=== PATIENT | female | born 1985 | race Caucasian/White ===

== ENCOUNTER → 2017-06-17 | Outpatient (CLI) | payer BC ==
[2013-04-22 17:49] VITALS: BP 141/87
[2017-06-17 14:22] LABS: T4 (THYROXINE) 9.7 ug/dL (4.7-13.3); TSH (3RD GENERATION) 1.583 uIU/mL (0.358-3.74)
== END ==
LOC: LAB 12:16
PROVIDERS: ATTEND Internal Medicine Endocrinology, Diabetes & Metabolism
DX: E03.4 Atrophy of thyroid (acquired) (principal)
CPT/HCPCS: 36415; 84436; 84443; 84481

== ENCOUNTER 2018-04-20 14:34 | Inpatient (IN) ==
[2018-04-20 14:43] VITALS: BMI 29.7
[2018-04-20 15:28] LABS: BASOPHILS # (AUTO) 0.1 X10^3/uL (0.0-0.1); BASOPHILS % (AUTO) 0.4 % (0.2-1.0); EOSINOPHILS % (AUTO) 0.1 % (0.9-2.9); HEMATOCRIT 38.2 % (36.0-47.0); HEMOGLOBIN 12.9 g/dL (12.0-16.0); LYMPHOCYTES # (AUTO) 1.9 X10^3/uL (1.3-2.9); LYMPHOCYTES % (AUTO) 13.3 % (21.0-51.0); MEAN CORPUSCULAR HEMOGLOBIN 29.6 pg (27.0-34.0); MEAN CORPUSCULAR HGB CONC 33.9 g/dL (33.0-35.0); MEAN CORPUSCULAR VOLUME 87.4 fL (80.0-100.0); MEAN PLATELET VOLUME 7.6 fL (7.4-11.0); MONOCYTES # (AUTO) 1.4 x10^3/uL (0.3-0.8); MONOCYTES % (AUTO) 9.7 % (0.0-13.0); NEUTROPHILS # (AUTO) 10.8 x10^3/uL (2.2-4.8); NEUTROPHILS % (AUTO) 76.5 % (42.0-75.0); PLATELET COUNT 431 X10^3/uL (150.0-450.0); RED BLOOD COUNT 4.37 X10^6/uL (3.5-5.4); RED CELL DISTRIBUTION WIDTH 12.2 % (11.6-16.5); WHITE BLOOD COUNT 14.1 X10^3/uL (3.6-10.0)
--- NOTE | 2018-04-20 15:29 | DR.SOBA ---
HPI Time Seen Time Seen by Provider: 04/20/18 15:16 Primary Care Physician Primary Care Physician: SINA PARRA HPI Comment HPI Comment: INCREASING SOB AND CHEST PAIN IN RIGHT LOWER CHEST AREA. 6 WEEKS AGO TREATED FOR UTI AND RIGHT SIDED PLEURAL EFFUSION. THIS NEVER RESOLVED. PROGRESSIVE RIGHT LOWER CHEST PAIN AND SOB WITN NON PRODUCTIVE COUGH CONTINUED. WORSE TODAY. Complaints Chief Complaint Doctors Comments: SOB AND CHEST PAIN. Chief Complaint:: PT. C/O RIGHT UPPER QUADRANT PAIN AND SHORTNESS OF BREATH. PT. STATES SHE BECAME SICK ON 03/11/18 AND WAS DIAGNOSED WITH A PLEURAL EFFUSION AND A UTI. SYMTPOMS HAVE PERSISTED AND SHORTNESS OF BREATH WORSENED TODAY. PT. ALSO C/O DRY COUGH & NAUSEA. 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 Past Surgical History Comment: TUBAL LIGATION Family History History of Family Medical Conditions: No Social History Does patient currently use any type of tobacco product: No Have you used tobacco products in the last 12 months: No Type of Tobacco Use: None Does any household member use tobacco: No Alcohol Use: Rarely Do you use any recreational Drugs:: No Lives With: Spouse Lives Where: Home infectious screening In the last 2 months have you had wt loss of >10#?: NO Have you had fever, night sweats or hemotysis?: No Have you traveled outside the country in the last 6 months?: No Isolation: Standard ROS Review of Systems Constitutional: Weakness and Fatigue Eyes: No Symptoms Reported ENTM: Nose Congestion Respiratoy: Moist Cough and Short of Breath Cardiovascular: Chest Pain Gastrointestinal/Abdominal: No Symptoms Reported Genitourinary: No Symptoms Reported Neurological: No Symptoms Reported Musculoskeletal: No Symptoms Reported Integumentary: No Symptoms Reported Hematologic/Lymphatic: No Symptoms Reported Endocrine: No Symptoms Reported Psychiatric: No Symptoms Reported All Other Systems: Reviewed and Negative PE Vital Signs Vitals: Temperature 97.5 F Pulse Rate [Apical] 111 Pulse Rate 88 Respiratory Rate 22 Blood Pressure [Right Arm] 96/53 Blood Pressure 123/71 O2 Sat by Pulse Oximetry 94 General Limitations: No Limitations General Appearance: Alert and In Distress Head Head Exam: Normal Inspection Eyes Eye exam: Normal Appearance ENT ENT Exam: Normal External Ear Exam Neck Neck Exam: Trachea Midline Chest Chest Inspection: Symmetric Chest Wall Rise Respiratory Respiratory Exam: Respiratory Distress Respiratory Exam: Bilateral: Wheezing and Bilateral: Rhonchi, Upper: Rhonchi and Lower: Wheezing and Lower: Rhonchi Cardiovascular Cardiovascular Exam: Regular Rate and Normal Rhythm Abdominal Exam Abdominal Exam: Normal Bowel Sounds and Soft; negative Tenderness Extremities Extremities Exam: Normal Inspection Back Back Exam: Normal Inspection Neurologic Neurological Exam: Alert and Oriented X3; negative Motor Sensory Deficit Psychiatric Psychiatric Exam: Normal Affect and Normal Mood Skin Skin Exam: Intact MDM Additional Information Obtained Additional Information Obtained From: Family Differential Diagnosis Differential Diagnosis: Bronchitis, CHF, Mycardial Infarction, Pneumonia, Pneumothorax, Pulmonary embolism, Respiratory Insufficiency and URI COURSE Treatment Treatment: SEE ORDERS. Education/Counseling Education/Counseling: Patient and Family Educated On: Diagnosis ROR Labs Reviewed Laboratory Results Reviewed?: Yes (REPORT NOTED) Result Diagrams: 04/21/18 03:03 04/21/18 03:03 Laboratory: 04/20/18 20:11 Urine,Clean Catch Urine Culture - Preliminary WBC 12.8 X10^3/uL (3.6-10.0) H 04/21/18 03:03 RBC 4.06 X10^6/uL (3.5-5.4) 04/21/18 03:03 Hgb 11.9 g/dL (12.0-16.0) L 04/21/18 03:03 Hct 35.5 % (36.0-47.0) L 04/21/18 03:03 MCV 87.5 fL (80.0-100.0) 04/21/18 03:03 MCH 29.4 pg (27.0-34.0) 04/21/18 03:03 MCHC 33.6 g/dL (33.0-35.0) 04/21/18 03:03 RDW 12.3 % (11.6-16.5) 04/21/18 03:03 Plt Count 334 X10^3/uL (150.0-450.0) 04/21/18 03:03 MPV 7.2 fL (7.4-11.0) L 04/21/18 03:03 Neut % (Auto) 76.3 % (42.0-75.0) H 04/21/18 03:03 Lymph % (Auto) 13.0 % (21.0-51.0) L 04/21/18 03:03 [place] % (Auto) 10.0 % (0.0-13.0) 04/21/18 03:03 Eos % (Auto) 0.2 % (0.9-2.9) L 04/21/18 03:03 Baso % (Auto) 0.5 % (0.2-1.0) 04/21/18 03:03 Neut # (Auto) 9.8 x10^3/uL (2.2-4.8) H 04/21/18 03:03 Lymph # (Auto) 1.7 X10^3/uL (1.3-2.9) 04/21/18 03:03 [place] # (Auto) 1.3 x10^3/uL (0.3-0.8) H 04/21/18 03:03 Eos # (Auto) 0.0 x10^3/uL (0.0-0.2) 04/21/18 03:03 Baso # (Auto) 0.1 X10^3/uL (0.0-0.1) 04/21/18 03:03 Absolute Nucleated RBC 0.0 /100WBC 04/21/18 03:03 INR Target Range - 04/20/18 14:50 INR 1.12 (0.8-1.3) 04/20/18 14:50 APTT 37.8 SECONDS (22.9-36.5) H 04/20/18 14:50 PTT Comment - 04/20/18 14:50 D-Dimer 1720 ng/mL (0-400) H* 04/20/18 14:50 Sample Site Rr 04/21/18 15:22 ABG pH 7.480 (7.35-7.45) H 04/21/18 15:22 ABG pCO2 34.0 mmHg (35.0-45.0) L 04/21/18 15:22 ABG pO2 71.0 mmHg (80.0-100.0) L 04/21/18 15:22 ABG HCO3 25.3 mmol/L (22-26) 04/21/18 15:22 ABG O2 Saturation 95.0 % (90-100) 04/21/18 15:22 ABG Base Excess 2.1 mmol/L (-2.0-2.0) H 04/21/18 15:22 Tomasz Test Pos 04/21/18 15:22 A-a Gradient 36.0 mmHg 04/21/18 15:22 FiO2 21.0 04/21/18 15:22 Blood Gas Comments Pt bernard well. cdn 04/21/18 15:22 Sodium 137 mmol/L (136-145) 04/21/18 03:03 Corrected Sodium TNP 04/21/18 03:03 Potassium 3.7 mmol/L (3.5-5.1) 04/21/18 03:03 Chloride 99 mmol/L (98-107) 04/21/18 03:03 Carbon Dioxide 25.1 mmol/L (21-32) 04/21/18 03:03 BUN 8 mg/dL (7-18) 04/21/18 03:03 Creatinine 0.80 mg/dL (0.55-1.02) 04/21/18 03:03 Est GFR (MDRD) Af Amer > 60 (>60) 04/21/18 03:03 Est GFR (MDRD) Non-Af > 60 (>60) 04/21/18 03:03 Glucose 108 mg/dL (65-99) H 04/21/18 03:03 Lactic Acid 0.6 mmol/L (0.4-2.0) 04/20/18 16:57 Calcium 8.6 mg/dL (8.5-10.1) 04/21/18 03:03 Corrected Calcium 9.6 mg/dL (8.5-10.1) 04/21/18 03:03 Total Bilirubin 0.70 mg/dL (0.2-1.0) 04/21/18 03:03 AST 9 Units/L (15-37) L 04/21/18 03:03 ALT 13 Units/L (12-78) 04/21/18 03:03 Alkaline Phosphatase 66 Units/L (46-116) 04/21/18 03:03 Creatine Kinase 22 Units/L (26-192) L 04/21/18 03:03 CK-MB (CK-2) < 1.0 ng/mL (0-4.0) 04/21/18 03:03 CK/CKMB % Calc 4.6 % (<4) 04/21/18 03:03 Troponin I < 0.02 ng/mL (0-1.5) 04/21/18 03:03 B-Natriuretic Peptide < 5.0 pg/mL (0-79) 04/20/18 14:50 Total Protein 7.1 g/dL (6.4-8.2) 04/21/18 03:03 Albumin 2.8 g/dL (3.4-5.0) L 04/21/18 03:03 Globulin 4.3 g/dL (2.5-4.5) 04/21/18 03:03 Albumin/Globulin Ratio 0.7 Ratio (1.1-2.1) L 04/21/18 03:03 Amylase 34 Units/L (25-115) 04/20/18 14:50 Lipase 81 Units/L (73-393) 04/20/18 14:50 HCG, Qual Negative <10 mIU/mL 04/20/18 14:50 Specimen Type Clean catch urine 04/20/18 20:11 Urine Color [place] (YELLOW) 04/20/18 20:11 Urine Appearance Slightly hazy (CLEAR) 04/20/18 20:11 Urine pH 5.0 (5.0 - 8.0) 04/20/18 20:11 Ur Specific [place] 1.005 (1.000-1.030) 04/20/18 20:11 Urine Protein 2+ (NEGATIVE) 04/20/18 20:11 Urine Glucose (UA) Negative (NEGATIVE) 04/20/18 20:11 Urine Ketones 1+ (NEGATIVE) 04/20/18 20:11 Urine Occult Blood 2+ (NEGATIVE) 04/20/18 20:11 Urine Nitrite Negative (NEGATIVE) 04/20/18 20:11 Urine Bilirubin Negative (NEGATIVE) 04/20/18 20:11 Urine Urobilinogen Normal (NORMAL) 04/20/18 20:11 Ur Leukocyte Esterase 3+ (NEGATIVE) 04/20/18 20:11 Urine RBC 0-2 /HPF (NONE SEEN) 04/20/18 20:11 Urine WBC 10-20 /HPF (NONE SEEN) 04/20/18 20:11 Ur Squamous Epith Cells Many /HPF (NEGATIVE) 04/20/18 20:11 Amorphous Sediment 1+ /HPF (NEGATIVE) 04/20/18 20:11 Urine Bacteria Trace /HPF (NEGATIVE) 04/20/18 20:11 Ur Culture Indicated? Yes/culture set up 04/20/18 20:11 XRAY XRAY Interpreted by: Radiologist (REPORT NOTED.) XRAY Findings: DISCUSS REPORT WITH PATIENT/DETAIL ON THE REPORT THAT IS ON RECORD. EKG [place]: Normal Rhythm: NSR Diagnosis Discharge Problem: Right lower lobe pneumonia, Pleural effusion Instructions Instructions: Pleural Effusion Community-Acquired Pneumonia, Adult, [id number] Forms: Patient Portal
[2018-04-20 15:45] LABS: ALANINE AMINOTRANSFERASE 19 Units/L (12-78); ALBUMIN 3.5 g/dL (3.4-5.0); ALKALINE PHOSPHATASE 77 Units/L (46-116); AMYLASE 34 Units/L (25-115); ASPARTATE AMINO TRANSFERASE 13 Units/L (15-37); BLOOD UREA NITROGEN 8 mg/dL (7-18); CALCIUM 9.1 mg/dL (8.5-10.1); CARBON DIOXIDE 26.7 mmol/L (21-32); CHLORIDE 99 mmol/L (98-107); COR NA(FOR HYPERGLY) 136 mmol/L (136-145); CREATININE 0.91 mg/dL (0.55-1.02); LIPASE 81 Units/L (73-393); SODIUM 136 mmol/L (136-145); TOTAL PROTEIN 8.1 g/dL (6.4-8.2); eGFR NON BLACK RACES > 60 (>60)
[2018-04-20 15:49] LABS: SERUM PREGNANCY TEST, QUAL NEGATIVE <10 mIU/mL
[2018-04-20 15:58] LABS: B-TYPE NATRIURETIC PEPTIDE < 5.0 pg/mL (0-79)
[2018-04-20 16:00] LABS: CREATINE KINASE 39 Units/L (26-192); CREATINE KINASE MB < 1.0 ng/mL (0-4.0); TROPONIN I < 0.02 ng/mL (0-1.5)
[2018-04-20 16:08] LABS: CKMB % 2.6 % (<4)
--- NOTE | 2018-04-20 16:41 | RAD ---
HISTORY: Right upper quadrant pain and shortness of breath Study: Two-view chest Comparison: None available Findings: The trachea is midline. The cardiac silhouette is unremarkable. The lungs demonstrate a moderate right-sided pleural effusion with associated infiltrate with a small loculated component.. The bony thorax is unremarkable. IMPRESSION: 1. Right-sided effusion with associated infiltrate as above. Reported By:
--- NOTE | 2018-04-20 16:45 | CT ---
HISTORY: Right upper quadrant pain and shortness of breath history of pleural effusion Study: CT chest with contrast Comparison: None Technique: Multiple axial images of the chest were obtained from the thoracic inlet to the upper abdomen after the administration of IV contrast. A PE protocol utilizing coronal and sagittal MIPS were obtained reviewed. Findings: The mediastinum does not demonstrate significant pathological lymphadenopathy. There is no pericardial effusion observed. The thoracic aorta is normal in its contour without evidence for aneurysmal dilatation. The central pulmonary arterial system does not demonstrate central filling defects to suggest pulmonary emboli. Evaluation of the lung parenchyma demonstrates a right-sided layering effusion with no loculated components. There is a small amount of fluid extending into the fissures. There is also associated focal consolidation in the right lower lobe with air bronchograms suggesting pneumonia although clinical correlation is requested.. No pulmonary nodule or mass can be identified. The bony thorax is unremarkable in its appearance. The visualized portions of the upper abdomen are grossly unremarkable. IMPRESSION: 1. Right-sided layering effusion with associated consolidation as above. There is no evidence for pulmonary embolus. Reported By:
[2018-04-20] MEDS ORDERED: ROCEPHIN VIAL 1 GRAM IVP ONE (16:54)
[2018-04-20] MEDS ORDERED: ROCEPHIN VIAL 1 GRAM ONE (17:06)
[2018-04-20] MEDS ORDERED: SALINE 3% 15 ML NEB TX ONE (17:31)
[2018-04-20] MEDS ORDERED: DUONEB 0.5 MG/3 MG ONE (17:31)
[2018-04-20] MEDS ORDERED: NS 1/2 1000 ML IV 1,000 ML IV ONE (18:43)
[2018-04-20] MEDS: TYLENOL 325 MG TAB PO PRN (19:01)
[2018-04-20] MEDS: LEVAQUIN PREMIX IV 500 MG 500 MG/100 ML BAG IV SCH (19:01)
[2018-04-20] MEDS: NS 1/2 1000 ML IV 1,000 ML IV SCH (19:01)
[2018-04-20 20:24] LABS: BILIRUBIN,URINE NEGATIVE (NEGATIVE); BLOOD/HEMOGLOBIN,URINE 2+ (NEGATIVE); GLUCOSE, URINE NEGATIVE (NEGATIVE); KETONES,URINE 1+ (NEGATIVE); LEUKOCYTE ESTERASE ,URINE 3+ (NEGATIVE); NITRITES,URINE NEGATIVE (NEGATIVE); PROTEIN,URINE 2+ (NEGATIVE); UROBILINOGEN,URINE NORMAL (NORMAL)
[2018-04-20 20:30] LABS: APPEARANCE,URINE SLIGHTLY HAZY (CLEAR); COLOR,URINE AMBER (YELLOW)
[2018-04-20] MEDS: ROBITUSSIN DM PO SCH (20:35)
[2018-04-20 20:38] LABS: RBC,URINE 0-2 /HPF (NONE SEEN)
[2018-04-20 20:39] LABS: AMORPHOUS SEDIMENT,UR 1+ /HPF (NEGATIVE); BACTERIA,URINE TRACE /HPF (NEGATIVE); SQUAMOUS EPITHELIAL CELL,UR MANY /HPF (NEGATIVE)
[2018-04-20] MEDS: ZOSYN VIAL 4.5 GRAMS 4.5 G in NS 100 ML IV + SPIKE MINIBAG* 100 ML IV SCH (21:30)
[2018-04-20] MEDS ORDERED: ZOSYN VIAL 4.5 GRAMS IV SCH (22:00)
[2018-04-20 22:12] LABS: CKMB % 3.3 % (<4); CREATINE KINASE 30 Units/L (26-192); CREATINE KINASE MB < 1.0 ng/mL (0-4.0); TROPONIN I < 0.02 ng/mL (0-1.5)
[2018-04-21] MEDS: XOPENEX 1.25 MG/3 ML NEBULE NEB SCH ×5 (00:52→20:37)
[2018-04-21 03:19] LABS: BASOPHILS # (AUTO) 0.1 X10^3/uL (0.0-0.1); BASOPHILS % (AUTO) 0.5 % (0.2-1.0); EOSINOPHILS % (AUTO) 0.2 % (0.9-2.9); HEMATOCRIT 35.5 % (36.0-47.0); HEMOGLOBIN 11.9 g/dL (12.0-16.0); LYMPHOCYTES # (AUTO) 1.7 X10^3/uL (1.3-2.9); MEAN CORPUSCULAR HEMOGLOBIN 29.4 pg (27.0-34.0); MEAN CORPUSCULAR HGB CONC 33.6 g/dL (33.0-35.0); MEAN CORPUSCULAR VOLUME 87.5 fL (80.0-100.0); MEAN PLATELET VOLUME 7.2 fL (7.4-11.0); MONOCYTES # (AUTO) 1.3 x10^3/uL (0.3-0.8); NEUTROPHILS # (AUTO) 9.8 x10^3/uL (2.2-4.8); NEUTROPHILS % (AUTO) 76.3 % (42.0-75.0); PLATELET COUNT 334 X10^3/uL (150.0-450.0); RED BLOOD COUNT 4.06 X10^6/uL (3.5-5.4); RED CELL DISTRIBUTION WIDTH 12.3 % (11.6-16.5); WHITE BLOOD COUNT 12.8 X10^3/uL (3.6-10.0)
[2018-04-21 03:40] LABS: ALANINE AMINOTRANSFERASE 13 Units/L (12-78); ALBUMIN 2.8 g/dL (3.4-5.0); ALKALINE PHOSPHATASE 66 Units/L (46-116); ASPARTATE AMINO TRANSFERASE 9 Units/L (15-37); BLOOD UREA NITROGEN 8 mg/dL (7-18); CALCIUM 8.6 mg/dL (8.5-10.1); CARBON DIOXIDE 25.1 mmol/L (21-32); CKMB % 4.6 % (<4); COR CA(FOR HYPOALB) 9.6 mg/dL (8.5-10.1); CREATINE KINASE 22 Units/L (26-192); CREATINE KINASE MB < 1.0 ng/mL (0-4.0); SODIUM 137 mmol/L (136-145); TOTAL PROTEIN 7.1 g/dL (6.4-8.2); TROPONIN I < 0.02 ng/mL (0-1.5); eGFR NON BLACK RACES > 60 (>60)
[2018-04-21] MEDS: ZOSYN VIAL 4.5 GRAMS 4.5 G in NS 100 ML IV + SPIKE MINIBAG* 100 ML IV SCH ×3 (05:08→21:56)
[2018-04-21] MEDS: TYLENOL 325 MG TAB PO PRN ×2 (05:18→15:53)
[2018-04-21 06:35] LABS: CHLORIDE 99 mmol/L (98-107)
--- NOTE | 2018-04-21 06:51 | RAD ---
History: Pneumonia Study: AP chest Comparison: Yesterday Findings: There is an increasingly large right pleural effusion. The left lung is clear and the heart size is normal. Impression: Increasingly large right pleural effusion with probable right lower lobe atelectasis or consolidation Reported By:
[2018-04-21] MEDS: ROBITUSSIN DM PO SCH ×4 (08:40→20:30)
[2018-04-21] MEDS: MUCOMYST 20% 200 MG/ML NEB SCH ×3 (09:24→20:38)
[2018-04-21] MEDS: SOLU-Medrol 40 MG VIAL IVP SCH ×3 (10:08→21:05)
[2018-04-21 15:27] LABS: ABG ALLEN TEST POS; ABG BASE EXCESS 2.1 mmol/L (-2.0-2.0); ABG HCO3 25.3 mmol/L (22-26)
--- NOTE | 2018-04-21 15:52 | US ---
HISTORY: Abdominal pain. Pneumonia and pleural effusion. Study: Right upper quadrant abdominal ultrasound Comparison: Most recent chest radiograph. Technique: Multiple godwin scale and color flow Doppler images of the right upper quadrant were obtained. Findings: The liver is normal in echotexture and size. No focal intraparenchymal mass or intrahepatic biliary ductal dilatation can be observed. The gallbladder fails to demonstrate evidence for cholelithiasis or layering sludge. The common bile duct is unremarkable measuring 10 mm. No pericholecystic fluid or gallbladder wall thickening can be observed. The CBD measures within normal limits. There is appropriate flow seen within the portal vein, hepatic artery, and visualized hepatic veins on this exam. The right kidney appears normal in size without focal parenchymal mass or nephrolithiasis. The right kidney measurers 9 x 5 x 5 cm. No hydronephrosis or perirenal fluid can be observed. The pancreatic head and body are unremarkable. The pancreatic tail is largely obscured by overlying bowel gas. IMPRESSION: No acute abdominal abnormalities are observed. Right-sided pleural effusion again appreciated, however. Reported By:
[2018-04-21] MEDS ORDERED: NS 1/2 1000 ML IV 1,000 ML IV ONE (17:46)
[2018-04-21] MEDS: NS 1/2 1000 ML IV 1,000 ML IV SCH (20:04)
[2018-04-21] MEDS: LEVAQUIN PREMIX IV 500 MG 500 MG/100 ML BAG IV SCH (20:30)
[2018-04-21] MEDS ORDERED: MAALOX or MYLANTA PO PRN (21:50)
[2018-04-21] MEDS ORDERED: MAALOX or MYLANTA ONE (21:52)
[2018-04-21] MEDS: ZOFRAN INJ 4 MG VIAL IVP PRN (22:15)
[2018-04-22] MEDS: NS 1/2 1000 ML IV 1,000 ML IV SCH ×2 (03:10→20:16)
[2018-04-22] MEDS: SOLU-Medrol 40 MG VIAL IVP SCH ×2 (05:08→13:40)
[2018-04-22] MEDS: ZOSYN VIAL 4.5 GRAMS 4.5 G in NS 100 ML IV + SPIKE MINIBAG* 100 ML IV SCH ×3 (05:09→21:50)
--- NOTE | 2018-04-22 05:53 | RAD ---
History: Follow-up of pleural effusion Study: Portable AP chest Comparison: Yesterday Findings: There is a moderately large right pleural effusion that overall appears slightly smaller than on yesterday's exam. The left lung is clear. The right upper lobe is clear. The heart size is normal. Impression: Moderately large right pleural effusion decreasing in size Reported By:
[2018-04-22 06:11] LABS: BASOPHILS % (AUTO) 0.1 % (0.2-1.0); HEMATOCRIT 33.9 % (36.0-47.0); HEMOGLOBIN 11.6 g/dL (12.0-16.0); LYMPHOCYTES # (AUTO) 0.8 X10^3/uL (1.3-2.9); LYMPHOCYTES % (AUTO) 4.4 % (21.0-51.0); MEAN CORPUSCULAR HEMOGLOBIN 29.5 pg (27.0-34.0); MEAN CORPUSCULAR HGB CONC 34.3 g/dL (33.0-35.0); MEAN CORPUSCULAR VOLUME 86.1 fL (80.0-100.0); MEAN PLATELET VOLUME 7.6 fL (7.4-11.0); MONOCYTES # (AUTO) 0.5 x10^3/uL (0.3-0.8); MONOCYTES % (AUTO) 2.8 % (0.0-13.0); NEUTROPHILS # (AUTO) 16.6 x10^3/uL (2.2-4.8); NEUTROPHILS % (AUTO) 92.7 % (42.0-75.0); PLATELET COUNT 404 X10^3/uL (150.0-450.0); RED BLOOD COUNT 3.93 X10^6/uL (3.5-5.4); RED CELL DISTRIBUTION WIDTH 12.2 % (11.6-16.5); WHITE BLOOD COUNT 17.9 X10^3/uL (3.6-10.0)
[2018-04-22 07:42] LABS: ALANINE AMINOTRANSFERASE 15 Units/L (12-78); ALBUMIN 2.9 g/dL (3.4-5.0); ALKALINE PHOSPHATASE 72 Units/L (46-116); ASPARTATE AMINO TRANSFERASE 9 Units/L (15-37); BLOOD UREA NITROGEN 6 mg/dL (7-18); CALCIUM 9.4 mg/dL (8.5-10.1); CARBON DIOXIDE 25.7 mmol/L (21-32); CHLORIDE 102 mmol/L (98-107); COR CA(FOR HYPOALB) 10.3 mg/dL (8.5-10.1); COR NA(FOR HYPERGLY) 139 mmol/L (136-145); CREATININE 0.75 mg/dL (0.55-1.02); SODIUM 138 mmol/L (136-145); TOTAL PROTEIN 7.8 g/dL (6.4-8.2); eGFR NON BLACK RACES > 60 (>60)
[2018-04-22 08:02] LABS: PLATELET MORPHOLOGY COMMENT NORMAL (NORMAL)
[2018-04-22] MEDS: ROBITUSSIN DM PO SCH ×4 (08:19→20:16)
[2018-04-22] MEDS: MUCOMYST 20% 200 MG/ML NEB SCH ×3 (09:00→18:05)
[2018-04-22] MEDS: XOPENEX 1.25 MG/3 ML NEBULE NEB SCH ×3 (09:00→18:05)
[2018-04-22] MEDS ORDERED: COLACE CAP 100 MG PO PRN (14:12)
[2018-04-22] MEDS ORDERED: ULTRAM PO PRN (14:12)
--- NOTE | 2018-04-22 16:03 | DR.H&P ---
H&P - History & Physical for Day of: H&P Date: 04/20/18 - Chief Complaint Chief Complaint: SOB, RIGHT SIDE CHEST PAIN - History of Present Illness History of Present Illness: 32 WF ER ADMISSION AFTER PRESENTING WITH CO INCREASING SOB AND CHEST PAIN IN RIGHT LOWER CHEST AREA. 6 WEEKS AGO TREATED FOR UTI AND RIGHT SIDED PLEURAL EFFUSION. THIS NEVER RESOLVED. PROGRESSIVE RIGHT LOWER CHEST PAIN AND SOB WITN NON PRODUCTIVE COUGH CONTINUED. WORSE TODAY. CTA CHEST IN ER REVEALED R PLEURAL EFFUSION DUE TO PNEUMONIA. PT ADMITTED FOR PNEUMONIA PROTOCOL - Past Medical History Past Medical History: GERD - Past Surgical History Surgical History: SLITTER OPERATOR Surgery - Family History Family Medical History: Diabetes Mellitus, Coronary Artery Disease, Heart Failure, Hypertension - Social History Does patient currently use any type of tobacco product: No Have you used tobacco products in the last 12 months: No Type of Tobacco Use: None Does any household member use tobacco: No Alcohol Use: Rarely Drug Use: None - Medications Home Medications: almond Allergy (Verified 04/20/18 15:21) codeine Allergy (Verified 04/20/18 15:21) diphenhydramine [From Benadryl] Allergy (Verified 04/20/18 15:21) Sulfa (Sulfonamide Antibiotics) [SULFA] Allergy (Verified 04/20/18 15:21) CONTINUE taking the following medications NK 04/21/18 [History] - Review of Systems Constitutional: Malaise Eyes: No Symptoms Reported ENT: No Symptoms Reported Respiratory: Shortness of Breath, SOB with Excertion, Pleuritic Pain Cardiovascular: No Symptoms Reported Gastrointestinal: Nausea Musculoskeletal: No Symptoms Reported Skin: No Symptoms Reported Neurological: No Symptoms Reported - Physical Exam Vital Signs: Temperature 97.8 F Pulse Rate [Apical] 119 Pulse Rate 98 Respiratory Rate 20 Blood Pressure [Right Arm] 122/64 Blood Pressure 123/71 O2 Sat by Pulse Oximetry 99 Oriented: Normal Eyes: Normal Ear: Normal Nose: Normal Throat: Normal Respiratory: RML Diminished, RLL Diminished Cardiovascular: Normal : Normal Auscultation: Bowel Sounds: Normal Palpation: Normal Tenderness: Normal Skin: Normal Musculoskeletal: Right, Tender (RIGHT LATERAL CHEST) Psychiatric: Normal Mood Description: Calm Affect: Anxious Speech Pattern: Clear, Appropriate - Assessment/Plan (1) Right lower lobe pneumonia Status: Acute Plan: ADMIT, PNEUMONIA PROTOCOL. BLOOD AND SPUTUM CULTURE. IV ATBX, RESP THERAPY, SUPPLEMENTAL O2. AM CHEST XRAY. GENTLE IV HYDRATION (2) SOB (shortness of breath) Status: Acute (3) Pleural effusion Status: Acute - Allergies Allergies/Adverse Reactions: Allergies Allergy/AdvReac Type Severity Reaction Status Date / Time almond Allergy Verified 04/20/18 15:21 codeine Allergy Verified 04/20/18 15:21 diphenhydramine Allergy Verified 04/20/18 15:21 [From Benadryl] Sulfa (Sulfonamide Allergy Verified 04/20/18 15:21 Antibiotics) [SULFA]
--- NOTE | 2018-04-22 16:09 | PCM.PROG ---
Progress Note - Progress Note for Day of Date of Exam: 04/21/18 - Subjective Subjective: 32 WF ER ADMISSION ON 04/20 WITH RIGHT PNEUMONIA AND PLEURAL EFFUSION. PT CONTINUES TO CO RIGHT SIDE PAIN AND RUQ TENDERNESS. PT CO NAUSEA AND FOOD INTOLERANCE AND HAD GB US SCHEDULED WITH PCP, WE WILL TRY TO OBTAIN GB US TODAY. PT CONTINUES WITH DIFFUSE RIGHT LUNG DIMINISHED BS. PT STARTED ON MUCOMYST, SOLU MEDROL IV X 3 DOSE AND CONTINUE IV ATBX. PT REPORTS HX OF MURMUR, MILD LE EDEMA - Past Medical Family Social History Past Med/Fam/Surg Hx: No changes since H&P Allergies: Allergies almond Allergy (Verified 04/20/18 15:21) codeine Allergy (Verified 04/20/18 15:21) diphenhydramine [From Benadryl] Allergy (Verified 04/20/18 15:21) Sulfa (Sulfonamide Antibiotics) [SULFA] Allergy (Verified 04/20/18 15:21) - Review of Systems ROS: No change since H&P - Vital Signs and I&O's Vital Signs: Temperature 97.8 F Pulse Rate [Apical] 119 Pulse Rate 98 Respiratory Rate 20 Blood Pressure [Right Arm] 122/64 Blood Pressure 123/71 O2 Sat by Pulse Oximetry 99 Intake and Output: Intake & Output 04/20/18 04/21/18 04/22/18 04/23/18 11:59 11:59 11:59 11:59 Intake Total 1860 / 1860 2602 / 2602 Output Total 480 / 480 500 / 500 Balance 1380 / 1380 2102 / 2102 - Physical Exam Oriented: Normal Eyes: Normal Ear: Normal Nose: Normal Throat: Normal Cardiovascular: Normal, Edema (TRACE BILATERAL LE) : Normal Auscultation: Bowel Sounds: Normal Tenderness: Normal Skin: Normal Musculoskeletal: Right, Tender (RIGHT LATERAL CHEST) Psychiatric: Normal Mood Description: Calm Affect: Anxious Speech Pattern: Clear, Appropriate - Laboratory and Diagnostics Result Diagrams: 04/22/18 05:20 04/22/18 05:20 Labs: 04/20/18 17:05 Blood Blood Culture - Preliminary 04/20/18 16:57 Blood Blood Culture - Preliminary 04/20/18 20:11 Urine,Clean Catch Urine Culture - Final Laboratory WBC 17.9 X10^3/uL (3.6-10.0) H 04/22/18 05:20 RBC 3.93 X10^6/uL (3.5-5.4) 04/22/18 05:20 Hgb 11.6 g/dL (12.0-16.0) L 04/22/18 05:20 Hct 33.9 % (36.0-47.0) L 04/22/18 05:20 MCV 86.1 fL (80.0-100.0) 04/22/18 05:20 MCH 29.5 pg (27.0-34.0) 04/22/18 05:20 MCHC 34.3 g/dL (33.0-35.0) 04/22/18 05:20 RDW 12.2 % (11.6-16.5) 04/22/18 05:20 Plt Count 404 X10^3/uL (150.0-450.0) 04/22/18 05:20 Plt Count Comment Adequate (ADEQUATE) 04/22/18 05:20 MPV 7.6 fL (7.4-11.0) 04/22/18 05:20 Neut % (Auto) 92.7 % (42.0-75.0) H 04/22/18 05:20 Lymph % (Auto) 4.4 % (21.0-51.0) L 04/22/18 05:20 [place] % (Auto) 2.8 % (0.0-13.0) 04/22/18 05:20 Eos % (Auto) 0.0 % (0.9-2.9) L 04/22/18 05:20 Baso % (Auto) 0.1 % (0.2-1.0) L 04/22/18 05:20 Neut # (Auto) 16.6 x10^3/uL (2.2-4.8) H 04/22/18 05:20 Lymph # (Auto) 0.8 X10^3/uL (1.3-2.9) L 04/22/18 05:20 [place] # (Auto) 0.5 x10^3/uL (0.3-0.8) 04/22/18 05:20 Eos # (Auto) 0.0 x10^3/uL (0.0-0.2) 04/22/18 05:20 Baso # (Auto) 0.0 X10^3/uL (0.0-0.1) 04/22/18 05:20 Absolute Nucleated RBC 0.0 /100WBC 04/22/18 05:20 Total Counted 100 04/22/18 05:20 Neutrophils % (Manual) 89 % (39-76) H 04/22/18 05:20 Lymphocytes % (Manual) 7 % (13-43) L 04/22/18 05:20 Monocytes % (Manual) 2 % (4-9) L 04/22/18 05:20 Eosinophils % (Manual) 2 % (0-6) 04/22/18 05:20 Plt Morphology Comment Normal (NORMAL) 04/22/18 05:20 RBC Morphology Normal (NORMAL) 04/22/18 05:20 INR Target Range - 04/20/18 14:50 INR 1.12 (0.8-1.3) 04/20/18 14:50 APTT 37.8 SECONDS (22.9-36.5) H 04/20/18 14:50 PTT Comment - 04/20/18 14:50 D-Dimer 1720 ng/mL (0-400) H* 04/20/18 14:50 Sample Site Rr 04/21/18 15:22 ABG pH 7.480 (7.35-7.45) H 04/21/18 15:22 ABG pCO2 34.0 mmHg (35.0-45.0) L 04/21/18 15:22 ABG pO2 71.0 mmHg (80.0-100.0) L 04/21/18 15:22 ABG HCO3 25.3 mmol/L (22-26) 04/21/18 15:22 ABG O2 Saturation 95.0 % (90-100) 04/21/18 15:22 ABG Base Excess 2.1 mmol/L (-2.0-2.0) H 04/21/18 15:22 Tomasz Test Pos 04/21/18 15:22 A-a Gradient 36.0 mmHg 04/21/18 15:22 FiO2 21.0 04/21/18 15:22 Blood Gas Comments Pt bernard well. cdn 04/21/18 15:22 Sodium 138 mmol/L (136-145) 04/22/18 05:20 Corrected Sodium 139 mmol/L (136-145) 04/22/18 05:20 Potassium 3.8 mmol/L (3.5-5.1) 04/22/18 05:20 Chloride 102 mmol/L (98-107) 04/22/18 05:20 Carbon Dioxide 25.7 mmol/L (21-32) 04/22/18 05:20 BUN 6 mg/dL (7-18) L 04/22/18 05:20 Creatinine 0.75 mg/dL (0.55-1.02) 04/22/18 05:20 Est GFR (MDRD) Af Amer > 60 (>60) 04/22/18 05:20 Est GFR (MDRD) Non-Af > 60 (>60) 04/22/18 05:20 Glucose 154 mg/dL (65-99) H 04/22/18 05:20 Lactic Acid 0.6 mmol/L (0.4-2.0) 04/20/18 16:57 Calcium 9.4 mg/dL (8.5-10.1) 04/22/18 05:20 Corrected Calcium 10.3 mg/dL (8.5-10.1) H 04/22/18 05:20 Total Bilirubin 0.30 mg/dL (0.2-1.0) 04/22/18 05:20 AST 9 Units/L (15-37) L 04/22/18 05:20 ALT 15 Units/L (12-78) 04/22/18 05:20 Alkaline Phosphatase 72 Units/L (46-116) 04/22/18 05:20 Creatine Kinase 22 Units/L (26-192) L 04/21/18 03:03 CK-MB (CK-2) < 1.0 ng/mL (0-4.0) 04/21/18 03:03 CK/CKMB % Calc 4.6 % (<4) 04/21/18 03:03 Troponin I < 0.02 ng/mL (0-1.5) 04/21/18 03:03 B-Natriuretic Peptide < 5.0 pg/mL (0-79) 04/20/18 14:50 Total Protein 7.8 g/dL (6.4-8.2) 04/22/18 05:20 Albumin 2.9 g/dL (3.4-5.0) L 04/22/18 05:20 Globulin 4.9 g/dL (2.5-4.5) H 04/22/18 05:20 Albumin/Globulin Ratio 0.6 Ratio (1.1-2.1) L 04/22/18 05:20 Amylase 34 Units/L (25-115) 04/20/18 14:50 Lipase 81 Units/L (73-393) 04/20/18 14:50 HCG, Qual Negative <10 mIU/mL 04/20/18 14:50 Specimen Type Clean catch urine 04/20/18 20:11 Urine Color [place] (YELLOW) 04/20/18 20:11 Urine Appearance Slightly hazy (CLEAR) 04/20/18 20:11 Urine pH 5.0 (5.0 - 8.0) 04/20/18 20:11 Ur Specific [place] 1.005 (1.000-1.030) 04/20/18 20:11 Urine Protein 2+ (NEGATIVE) 04/20/18 20:11 Urine Glucose (UA) Negative (NEGATIVE) 04/20/18 20:11 Urine Ketones 1+ (NEGATIVE) 04/20/18 20:11 Urine Occult Blood 2+ (NEGATIVE) 04/20/18 20:11 Urine Nitrite Negative (NEGATIVE) 04/20/18 20:11 Urine Bilirubin Negative (NEGATIVE) 04/20/18 20:11 Urine Urobilinogen Normal (NORMAL) 04/20/18 20:11 Ur Leukocyte Esterase 3+ (NEGATIVE) 04/20/18 20:11 Urine RBC 0-2 /HPF (NONE SEEN) 04/20/18 20:11 Urine WBC 10-20 /HPF (NONE SEEN) 04/20/18 20:11 Ur Squamous Epith Cells Many /HPF (NEGATIVE) 04/20/18 20:11 Amorphous Sediment 1+ /HPF (NEGATIVE) 04/20/18 20:11 Urine Bacteria Trace /HPF (NEGATIVE) 04/20/18 20:11 Ur Culture Indicated? Yes/culture set up 04/20/18 20:11 - Plan (1) Right lower lobe pneumonia Status: Acute Plan: PNEUMONIA PROTOCOL. BLOOD AND SPUTUM CULTURE ORDERED ON ADMISSION. IV ATBX, RESP THERAPY, SUPPLEMENTAL O2. AM CHEST XRAY. GENTLE IV HYDRATION (2) SOB (shortness of breath) Status: Acute (3) Pleural effusion Status: Acute (4) Right upper quadrant pain Status: Acute Plan: GB US
[2018-04-22] MEDS: TYLENOL 325 MG TAB PO PRN ×2 (17:00→23:07)
[2018-04-22] MEDS: LEVAQUIN PREMIX IV 500 MG 500 MG/100 ML BAG IV SCH (20:16)
[2018-04-22] MEDS: ZOFRAN INJ 4 MG VIAL IVP PRN (20:17)
[2018-04-23] MEDS: XOPENEX 1.25 MG/3 ML NEBULE NEB SCH ×3 (00:47→12:37)
[2018-04-23] MEDS: MUCOMYST 20% 200 MG/ML NEB SCH ×5 (00:47→12:37)
[2018-04-23] MEDS ORDERED: NS 1/2 1000 ML IV 1,000 ML IV ONE (02:04)
[2018-04-23] MEDS: NS 1/2 1000 ML IV 1,000 ML IV SCH (02:08)
[2018-04-23] MEDS: ZOSYN VIAL 4.5 GRAMS 4.5 G in NS 100 ML IV + SPIKE MINIBAG* 100 ML IV SCH ×2 (05:27→13:14)
[2018-04-23 05:44] LABS: BASOPHILS % (AUTO) 0.1 % (0.2-1.0); HEMATOCRIT 31.6 % (36.0-47.0); HEMOGLOBIN 10.7 g/dL (12.0-16.0); LYMPHOCYTES # (AUTO) 1.2 X10^3/uL (1.3-2.9); LYMPHOCYTES % (AUTO) 5.4 % (21.0-51.0); MEAN CORPUSCULAR HEMOGLOBIN 29.7 pg (27.0-34.0); MEAN CORPUSCULAR VOLUME 87.5 fL (80.0-100.0); MEAN PLATELET VOLUME 7.6 fL (7.4-11.0); MONOCYTES # (AUTO) 1.1 x10^3/uL (0.3-0.8); MONOCYTES % (AUTO) 5.1 % (0.0-13.0); NEUTROPHILS # (AUTO) 19.3 x10^3/uL (2.2-4.8); NEUTROPHILS % (AUTO) 89.4 % (42.0-75.0); PLATELET COUNT 406 X10^3/uL (150.0-450.0); RED BLOOD COUNT 3.61 X10^6/uL (3.5-5.4); RED CELL DISTRIBUTION WIDTH 12.5 % (11.6-16.5); WHITE BLOOD COUNT 21.6 X10^3/uL (3.6-10.0)
[2018-04-23 05:49] LABS: ALANINE AMINOTRANSFERASE 14 Units/L (12-78); ALBUMIN 2.5 g/dL (3.4-5.0); ALKALINE PHOSPHATASE 64 Units/L (46-116); ASPARTATE AMINO TRANSFERASE 8 Units/L (15-37); BLOOD UREA NITROGEN 11 mg/dL (7-18); CALCIUM 8.9 mg/dL (8.5-10.1); CARBON DIOXIDE 26.2 mmol/L (21-32); CHLORIDE 106 mmol/L (98-107); COR CA(FOR HYPOALB) 10.1 mg/dL (8.5-10.1); COR NA(FOR HYPERGLY) 141 mmol/L (136-145); SODIUM 139 mmol/L (136-145); TOTAL PROTEIN 6.7 g/dL (6.4-8.2); eGFR NON BLACK RACES > 60 (>60)
[2018-04-23 06:18] LABS: BAND NEUTROPHILS % 1 % (0-10); PLATELET MORPHOLOGY COMMENT NORMAL (NORMAL)
--- NOTE | 2018-04-23 06:44 | CT ---
History: Right pleural effusion and pneumonia Study: CT thorax without IV contrast. Sagittal and coronal reformations were provided. Comparison: April 20 Findings: There is a moderately large right pleural effusion as before with compression atelectasis in the right lower lobe. The right upper lobe is clear. The left lung is clear. There is no pericardial effusion. There is no obvious adenopathy. Impression: No significant change of moderately large right pleural effusion and compression atelectasis in the right lower lobe Reported By:
[2018-04-23] MEDS: ROBITUSSIN DM PO SCH ×2 (09:37→13:14)
[2018-04-23 09:40] LABS: ABG BASE EXCESS 4.6 mmol/L (-2.0-2.0); ABG HCO3 28.3 mmol/L (22-26)
[2018-04-23 13:00] VITALS: BP 121/63
[2018-04-23] MEDS: ZOFRAN INJ 4 MG VIAL IVP PRN (14:35)
== END 2018-04-23 14:37 | disposition short-term general hospital (02) | DRG 194 ==
LOC: ICU 14:38 → ER 14:38 → OBSVTOIN 18:10 → ICU 18:30
PROVIDERS: ADMIT Internal Medicine; ATTEND Internal Medicine
DX: R10.11 Right upper quadrant pain; R94.31 Abnormal electrocardiogram [ECG] [EKG]; K21.9 Gastro-esophageal reflux disease without esophagitis; J90 Pleural effusion, not elsewhere classified; J18.8 Other pneumonia, unspecified organism; R79.1 Abnormal coagulation profile; R07.89 Other chest pain; R06.02 Shortness of breath
CPT/HCPCS: 36415; 36600; 71010; 71020; 71045; 71046; 71250; 71275; 76705; 80053; 81001; 82150; 82550; 82553; 82803; 83605; 83690; 83880; 84484; 84703; 85025; 85378; 85610; 85730; 87040; 87086; 93005; 93306; 94640; 94669; 94760; 96365; 96374; 99284; A4222; J0696; J1956; J2405; J2543; J2920; J3490; J7050; J7620